=== PATIENT | male | born 1960 | race Caucasian/White ===

== ENCOUNTER → 2017-10-31 | Outpatient (CLI) | payer OTHER ==
[2017-10-31 12:40] LABS: BASOPHILS % (AUTO) 0 % (0-10); EOSINOPHILS % (AUTO) 0 % (0-10); HEMATOCRIT 44 % (40-54); HEMOGLOBIN 15.2 G/DL (13.3-17.7); LYMPHOCYTES # (AUTO) 0.9 X 10^3 (1.0-4.0); LYMPHOCYTES % (AUTO) 7 % (12-44); MEAN CORPUSCULAR HEMOGLOBIN 30 PG (25-34); MEAN CORPUSCULAR HGB CONC 35 G/DL (32-36); MEAN CORPUSCULAR VOLUME 85 FL (80-99); MEAN PLATELET VOLUME 10.5 FL (7.4-10.4); MONOCYTES % (AUTO) 8 % (0-12); NEUTROPHILS % (AUTO) 85 % (42-75); PLATELET COUNT 140 10^3/uL (130-400); RED BLOOD COUNT 5.15 10^6/uL (4.35-5.85); RED CELL DISTRIBUTION WIDTH 13.9 % (10.0-14.5); WHITE BLOOD COUNT 12.9 10^3/uL (4.3-11.0)
[2017-10-31 12:56] LABS: BUN/CREATININE RATIO 18; CARBON DIOXIDE 22 MMOL/L (21-32); CHLORIDE 101 MMOL/L (98-107); CREATININE SERUM 1.11 MG/DL (0.60-1.30); GFR ESTIMATED > 60; GLUCOSE 127 MG/DL (70-105); POTASSIUM 3.8 MMOL/L (3.6-5.0); SODIUM 136 MMOL/L (135-145)
[2017-10-31 13:03] LABS: BAND NEUTROPHILS 9 %; LYMPHOCYTES % (MANUAL) 9 %; MONOCYTES % (MANUAL) 6 %; NEUTROPHILS % (MANUAL) 76 %; RBC MORPH NORMAL; TOXIC GRANULATION/VACUOLAZATIO 1+
--- NOTE | 2017-10-31 13:36 | Diagnostic Imaging Report ---
INDICATION: Influenza COMPARISON: None available TECHNIQUE: Frontal and lateral radiographs of the chest dated 10/31/2017. FINDINGS: The cardiac silhouette is within normal limits. No significant pulmonary vascular congestion. The lungs are clear focal pulmonary opacity. No pleural effusion. No pneumothorax. No acute osseous abnormality. IMPRESSION: No acute cardiopulmonary abnormality. Message left at [phone] at 1:36 p.m. 10/31/2017/jesse Dictated by: Dictated on workstation # [id number]
== END ==
LOC: LAB 12:22
PROVIDERS: ATTEND Nurse Practitioner Family
DX: J11.1 Influenza due to unidentified influenza virus with other respiratory manifestations (principal)
CPT/HCPCS: 36415; 71046; 80048; 85007; 85027

== ENCOUNTER → 2018-03-29 | Outpatient (CLI) | payer OTHER ==
--- NOTE | 2018-03-29 09:03 | Diagnostic Imaging Report ---
Indication: Injury accompanied by lower popping, pain and swelling most notably medially. Lateral view shows a large retropatellar and suprapatellar knee joint effusion. Tricompartmental osteoarthritis with articular sclerosis, marginal osteophytes and mild joint space narrowing. Only identifiable in the lateral radiograph a small well-corticated body proximal to the upper anterior tibial spine 3.9 mm, could be an old avulsion or more likely an ununited osteophyte. Impression: Swelling and a large joint effusion with tricompartmental osteoarthritis, no acute osseous abnormality apparent. Dictated by: Dictated on workstation # [id number]
== END ==
LOC: RAD 08:36
PROVIDERS: ATTEND Nurse Practitioner Family
DX: S89.92XA Unspecified injury of left lower leg, initial encounter (principal); M17.12 Unilateral primary osteoarthritis, left knee
CPT/HCPCS: 73562

== ENCOUNTER → 2018-04-01 | Outpatient (CLI) | payer OTHER ==
--- NOTE | 2018-04-01 09:52 | Diagnostic Imaging Report ---
PROCEDURE: MR imaging left lower extremity without contrast. TECHNIQUE: Multiplanar, multisequence non contrast enhanced MR imaging of the left lower extremity was accomplished. INDICATION: Knee pain and swelling. FINDINGS: The anterior cruciate ligament is very attenuated however there does appear to be some intact fibers. Additionally, there is marked increased signal intensity within the posterior cruciate ligament likely reflecting either myxoid degeneration or possibly intraligamentous ganglion. Both the superficial and deep components of the medial collateral ligament are intact. The biceps femoris, fibular collateral and iliotibial band are intact. There are tears of both anterior and posterior horns of medial meniscus. Essentially no normal lateral meniscal tissue is appreciated. The quadriceps tendon and patellar tendons are intact. There is a large knee joint effusion. The articular cartilage of the patella is well-maintained. There is loss of articular cartilage in both the medial and lateral knee joint compartment however there is no significant underlying marrow edema. There is some marginal osteophytosis. IMPRESSION: 1. Markedly attenuated anterior cruciate ligament with a few intact fibers. 2. Increased signal intensity in the proximal PCL either reflecting myxoid degeneration or intra-ligamentous ganglion. 3. Tears of both the anterior and posterior horns of the medial meniscus. 4. Essentially no normal-appearing lateral meniscal tissue. 5. Large knee joint effusion. 6. Moderate osteoarthritic change of both the medial and lateral knee joint compartments. Dictated by: Dictated on workstation # [id number]
== END ==
LOC: RAD 08:18
PROVIDERS: ATTEND Nurse Practitioner Family
DX: S83.242A Other tear of medial meniscus, current injury, left knee, initial encounter (principal)